=== PATIENT | male | born 1990 | race Caucasian/White ===

== ENCOUNTER 2016-06-30 07:07 | Day surgery (SDC) | payer SELFPAY ==
[~2016-06-30 07:07] MED LIST: CIPRO500 MG PO; SULFAMETHOXAZO PO
== END 2016-06-30 12:22 ==
LOC: SHSC 07:07 → ORW 08:50 → PACU 10:25 → SHSC 10:50
PROC: 0YU50JZ Supplement Right Inguinal Region with Synthetic Substitute, Open Approach (ICD-10-PCS; principal; 2016-06-30)
DX: K40.90 Unilateral inguinal hernia, without obstruction or gangrene, not specified as recurrent (principal)
CPT/HCPCS: C1781; J0131; J0690; J1885